=== PATIENT | female | born 1960 | race Caucasian/White ===

== ENCOUNTER 2016-07-08 19:32 | Emergency (ER) | payer SELFPAY ==
[2016-07-08 20:25] LABS: BASOPHILS 0.4 % (0.0-2.0); EOSINOPHILS 0.8 % (0-7); HEMOGLOBIN 14.4 g/dL (12-16); IMMATURE GRANULOCYTES 0.3 % (0-5); LYMPHOCYTES 15.2 % (15-50); MCH 27.9 pg (26.0-34.0); MEAN PLATELET VOLUME 12.2 fL (7.4-10.4); MONOCYTES 3.5 % (2-11); NEUTROPHILS 79.8 % (40-80); PLATELET COUNT 190 10x3/uL (130-400); RBC 5.17 10x6/uL (4.00-5.40); RDW 13.8 % (11.5-14.5); WBC 7.5 10x3/uL (4.8-10.8)
[2016-07-08 20:53] LABS: ALBUMIN 3.7 g/dL (3.4-5.0); ALKALINE PHOSPHATASE 139 U/L (46-116); ALT (SGPT) 31 U/L (10-68); CALC OSMOLALITY 282 mosm/kg (275-300); CALCIUM 9.2 mg/dL (8.5-10.1); CARBON DIOXIDE 29.6 mmol/L (21.0-32.0); CHLORIDE - SERUM 103 mmol/L (98-107); CREATININE - SERUM 0.9 mg/dL (0.6-1.3); GLUCOSE 138 mg/dL (74-106); POTASSIUM - SERUM 4.2 mmol/L (3.5-5.1); PROTEIN - SERUM 6.4 g/dL (6.4-8.2); SODIUM 141 mmol/L (136-145); UREA NITROGEN 13 mg/dL (7-18); eGFR NON AFRICAN AMERICAN 69 mL/min (90-120)
[2016-07-08 21:02] LABS: CHOL - HDL RATIO 3.1 ratio (2.3-4.1); CHOLESTEROL, TOTAL 202 mg/dL (0-200); CKMB 0.9 U/L (0.0-3.6); CREATINE KINASE 106 UL (21-215); HDL CHOLESTEROL 65 mg/dL (32-96); LDL CHOLESTEROL 121 mg/dL (0-100); LDL-HDL RATIO 1.9 ratio (1.5-3.5); TRIGLYCERIDE 83 mg/dL (30-200)
[2016-07-08 21:09] LABS: TROPONIN-I < 0.017 ng/mL (0.000-0.060)
== END 2016-07-08 22:05 | disposition home or self-care (01) ==
LOC: D.ER 19:32
PROVIDERS: Emergency Medicine
DX: R07.9 Chest pain, unspecified (principal); J45.909 Unspecified asthma, uncomplicated; F41.9 Anxiety disorder, unspecified